=== PATIENT | female | born 1995 | race Caucasian/White ===

== ENCOUNTER 2017-03-23 22:51 | Emergency (ER) | payer MEDICAID ==
[~2017-03-23 22:51] MED LIST: MOTRIN-DPS800 MG PO; TYLENOL EXTRA500 M1 PO
--- NOTE | 2017-03-24 06:55 | ER ---
ADMIT: 03/23/2017 RM/LOC: ER [facility] MR#: [id number] [id number] [place], [place] [id number] VIBHA MILAN [address] [place] [address] Emergency Room Report SEX: F AGE: 21 : 1995 DATE: 03/23/2017 TIME: 2251 hours. Please refer to my T-sheet for complete H and P. HISTORY OF PRESENT ILLNESS: Briefly, the patient is a 21-year-old, who comes in with abdominal pain. She is about 13 weeks. She says it is in right upper, sharp pain, just shooting, and lasted just a few seconds. No vomiting. No other complaints. She has been a little nauseous. PHYSICAL EXAMINATION: VITAL SIGNS: Stable. ABDOMEN: Mildly tender right upper quadrant. No rebound. No guarding. Really no pain at this time. She is rating it as 0. EMERGENCY DEPARTMENT COURSE: UA was negative. Vital signs were stable. I had a long discussion with her. She was ready for discharge. ASSESSMENT: Abdominal pain, fleeting in nature. It may be a little bit of gastritis or intestinal colic, was up in the right upper quadrant. I talked to her about low-fat diet and follow up. She was comfortable and ready for discharge. PLAN: Tylenol. Return if worse. Low-fat diet. Stop smoking. Nish Campoverde MD/ dewayne JOB #: [id number] CC: Nish Campoverde MD, Attending Physician UNKNOWN, Family Physician
== END 2017-03-24 01:05 | disposition home or self-care (01) ==
LOC: ER 22:51
DX: O99.89 Other specified diseases and conditions complicating pregnancy, childbirth and the puerperium (principal); R10.11 Right upper quadrant pain; O99.331 Smoking (tobacco) complicating pregnancy, first trimester; F17.200 Nicotine dependence, unspecified, uncomplicated; Z3A.13 13 weeks gestation of pregnancy

== ENCOUNTER → 2017-03-24 | Outpatient (CLI) | payer MEDICAID | END | disposition home or self-care (01) | LOC: RAD.S 16:15 | DX: Z34.81 Encounter for supervision of other normal pregnancy, first trimester (principal); Z3A.13 13 weeks gestation of pregnancy ==